=== PATIENT | male | born 1985 | race African-American/Black ===

== ENCOUNTER 2020-05-28 20:06 | Emergency (ER) | payer OTHER ==
[2020-05-28 20:11] VITALS: BP 132/75; PULSE 98; TEMP 97.6; BMI 22.8
== END 2020-05-28 21:44 | disposition home or self-care (01) ==
LOC: JER 20:06
PROC: 0HQGXZZ Repair Left Hand Skin, External Approach (ICD-10-PCS; principal; 2020-05-28)
DX: S61.211A Laceration without foreign body of left index finger without damage to nail, initial encounter (principal)
CPT/HCPCS: 99282-25